=== PATIENT | female | born 1995 | race African-American/Black ===

== ENCOUNTER → 2022-04-08 10:46 | Outpatient (CLI) | payer OTHER, SELFPAY ==
--- NOTE | 2022-04-08 | DI.RAD.S_ITS ---
PROCEDURE: XR THORACIC SPINE 3V INDICATIONS: BACK PAIN TECHNIQUE: 3 views of the thoracic spine were acquired. COMPARISON: None. FINDINGS: Bones: No fractures or dislocations. No suspicious bony lesions. 12 pairs of ribs are noted, and appear intact where visualized. Soft tissues: No paravertebral stripe thickening. IMPRESSION: Mild levo curvature. Otherwise normal exam. Dictated by: Clark Hoover M.D. on 04/08/2022 at 17:22 Approved by: Clark Hoover M.D. on 04/08/2022 at 17:23
--- NOTE | 2022-04-08 | DI.RAD.S_ITS ---
PROCEDURE: XR LUMBAR SPINE 2-3V INDICATIONS: BACK PAIN TECHNIQUE: 3 views of the lumbar spine were acquired. COMPARISON: None. FINDINGS: Bones: 5 [id number] vertebrae are present. There is normal bony alignment. No vertebral body compression fractures. No suspicious bony lesions. There is rightward curvature of the thoracolumbar spine with a Whitman angle of 8?. L5-S1 has facet arthrosis. Soft tissues: Overlying bowel gas pattern is normal. No suspicious soft tissue calcifications. IMPRESSION: 1. No acute abnormality. 2. Rightward curvature of the thoracolumbar spine. 3. No disc space narrowing. 4. Facet arthrosis at L5-S1. Dictated by: Hiro Lopez M.D. on 04/08/2022 at 11:45 Approved by: Hiro Lopez M.D. on 04/08/2022 at 11:48
== END ==
PROVIDERS: PCP Family Medicine; Referring Provider Family Medicine; Visit Provider Family Medicine
DX: M47.817 Spondylosis without myelopathy or radiculopathy, lumbosacral region (principal); M54.9 Dorsalgia, unspecified
CPT/HCPCS: 72072; 72100